=== PATIENT | female | born 1960 | race Caucasian/White ===

== ENCOUNTER 2017-02-02 09:58 | Day surgery (SDC) | payer BC ==
[~2017-02-02] VITALS: Ht 162.6 cm; Wt 74.5 kg
[~2017-02-02 09:58] MED LIST: ATOR40TA PO; BUPIVACAINE/PF-EPI 0.5% 1:200K ONE; FLUO20TA25 PO; GLUC500T8 PO; LIDOCAINE 1%-EPI 1:100K, 50ML ONE; LYSI500T3 PO; MULT-230 PO-COUM; MULT-516 PO; OMEG-14 PO; ZOLP-413 PO
[2017-02-02 10:20] VITALS: BP 111/76
[2017-02-02] MEDS ORDERED: LACTATED RINGERS 1,000 ML IV SCH (10:21)
[2017-02-02] MEDS ORDERED: LIDOCAINE 1%, 2ML SQ PRN (10:30)
[2017-02-02] MEDS ORDERED: LIDOCAINE 1%, 2ML ONE (10:34)
[2017-02-02] MEDS ORDERED: FENTANYL PF 250 MCG/5ML ONE (11:00)
[2017-02-02] MEDS ORDERED: MIDAZOLAM 1 MG/ML, 2ML ONE (11:00)
[2017-02-02] MEDS ORDERED: DEXAMETHASONE 4 MG/ML, 1ML ONE (11:34)
[2017-02-02] MEDS ORDERED: PROPOFOL 10 MG/ML, 20ML ONE (11:34)
[2017-02-02] MEDS ORDERED: KETOROLAC 30 MG/1 ML ONE (11:34)
[2017-02-02] MEDS ORDERED: METOCLOPRAMIDE 5 MG/ML, 2ML ONE (11:34)
[2017-02-02] MEDS ORDERED: CEFAZOLIN 1,000 MG ONE (11:34)
[2017-02-02] MEDS ORDERED: ONDANSETRON 2MG/ML, 2ML ONE (11:34)
[2017-02-02] MEDS ORDERED: EPHEDRINE 50 MG/ML, 1ML IVPush PRN (12:00)
[2017-02-02] MEDS ORDERED: ALBUTEROL SULFATE 2.5 MG/3 ML NPPB PRN (12:00)
[2017-02-02] MEDS ORDERED: HYDROmorphone 1 MG/ML, 1ML IV PRN (12:00)
[2017-02-02] MEDS ORDERED: ONDANSETRON 2MG/ML, 2ML IVPush PRN (12:00)
[2017-02-02] MEDS ORDERED: METOPROLOL 1 MG/ML, 5ML IV PRN (12:00)
[2017-02-02] MEDS ORDERED: hydrALAzine 20 MG/ML, 1ML IV PRN (12:00)
[2017-02-02] MEDS ORDERED: OXYcodone 5 MG/5 ML ORAL.SOL UDC PO PRN (12:00)
[2017-02-02] MEDS ORDERED: LABETALOL 5MG/ML, 20ML IV PRN (12:00)
[2017-02-02] MEDS ORDERED: MEPERIDINE/PF 25MG/0.5ML IVPush PRN (12:00)
[2017-02-02] MEDS ORDERED: ACETAMINOPHEN 325 MG TABLET PO PRN (12:00)
[2017-02-02] MEDS ORDERED: ACETAMINOPHEN 325 MG TABLET ONE (12:58)
[2017-02-02] MEDS ORDERED: FENTANYL PF 100 MCG/2ML ONE (12:58)
[2017-02-02] MEDS ORDERED: OXYcodone 5 MG/5 ML ORAL.SOL UDC ONE (12:58)
[2017-02-02] MEDS: FENTANYL PF 100 MCG/2ML IV PRN ×2 (13:02→13:18)
[2017-02-02] MEDS ORDERED: HYDROmorphone 2 MG/ML, 1ML ONE (13:24)
[2017-02-02] MEDS ORDERED: ZOLPIDEM 5MG TABLET PO SCH (21:00)
[2017-02-02] MEDS ORDERED: ATORVASTATIN 40 MG TABLET PO SCH (21:00)
[2017-02-03] MEDS ORDERED: TEMPLATE NON-FORMULARY MED. (Lysine 500 MG) PO SCH (09:00)
[2017-02-03] MEDS ORDERED: TEMPLATE NON-FORMULARY MED. (Fluoxetine Hcl** 20 MG) PO SCH (09:00)
[2017-02-03] MEDS ORDERED: MULTIVITAMIN 1 TABLET PO SCH (09:00)
[2017-02-03] MEDS ORDERED: TEMPLATE NON-FORMULARY MED. (Glucosamine Hcl** 500 MG) PO SCH (09:00)
== END 2017-02-02 15:20 | disposition home or self-care (01) ==
LOC: OUT 09:58
PROVIDERS: ATTEND Orthopaedic Surgery
DX: S83.511A Sprain of anterior cruciate ligament of right knee, initial encounter (principal); S83.271A Complex tear of lateral meniscus, current injury, right knee, initial encounter; S83.211A Bucket-handle tear of medial meniscus, current injury, right knee, initial encounter; M22.41 Chondromalacia patellae, right knee; M65.861 Other synovitis and tenosynovitis, right lower leg; E78.5 Hyperlipidemia, unspecified; Z87.891 Personal history of nicotine dependence; W10.8XXA Fall (on) (from) other stairs and steps, initial encounter; Y93.01 Activity, walking, marching and hiking; Y92.9 Unspecified place or not applicable; Y99.9 Unspecified external cause status
CPT/HCPCS: 29880; 29888; C1713; C1762; J0690; J1100; J1170; J1885; J2250; J2405; J2704; J2765; J3010; J3490; J7120